=== PATIENT | male | born 1990 | race Caucasian/White ===

== ENCOUNTER 2017-09-15 11:37 | Emergency (ER) | payer OTHER ==
[2017-09-15 11:59] VITALS: BP 118/78; PULSE 72; RESP 16; TEMP 97.9
--- NOTE | 2017-09-15 14:17 | ED ---
General Adult HPI - General Chief complaint: Dizziness Stated complaint: poss vertigo Time Seen by Provider: 09/15/17 14:05 Source: patient, RN notes reviewed Mode of arrival: ambulatory Limitations: no limitations - History of Present Illness Initial comments: 26-year-old male presents for evaluation of dizziness. The dizziness began this morning, he's had this feeling of the room spinning throughout the day today. He did have an episode similar to this several months ago. He was prescribed Antivert and symptoms improved. He denies any URI symptoms. Denies any changes in his hearing or ear pain. Denies any focal weakness denies any focal numbness or tingling. Patient has no balance issues with this episode, he did have some balance issues with his previous episode of vertigo. Denies any nausea or vomiting. Denies any pain complaints. Patient is otherwise healthy with no chronic medical problems. - Related Data Previous Rx's Medication Instructions Recorded Meclizine [Antivert] 25 mg PO TID PRN #30 tab 09/15/17 Allergies Allergy/AdvReac Type Severity Reaction Status Date / Time No Known Allergies Allergy Verified 09/15/17 13:29 Review of Systems ROS Statement: Those systems with pertinent positive or pertinent negative responses have been documented in the HPI. ROS Other: All systems not noted in ROS Statement are negative. Past Medical History Past Medical History: No Reported History History of Any Multi-Drug Resistant Organisms: None Reported Past Surgical History: No Surgical Hx Reported Past Psychological History: No Psychological Hx Reported Smoking Status: Current every day smoker Past Alcohol Use History: Occasional Past Drug Use History: None Reported General Exam Limitations: no limitations General appearance: alert, in no apparent distress Head exam: Present: atraumatic, normocephalic Eye exam: Present: normal appearance, PERRL, EOMI. Absent: nystagmus ENT exam: Present: normal exam, mucous membranes moist, TM's normal bilaterally Neck exam: Present: normal inspection, tenderness, full ROM. Absent: meningismus Respiratory exam: Present: normal lung sounds bilaterally. Absent: respiratory distress Cardiovascular Exam: Present: regular rate, normal rhythm, normal heart sounds GI/Abdominal exam: Present: soft. Absent: distended, tenderness Extremities exam: Present: normal inspection, normal capillary refill Neurological exam: Present: alert, oriented X3, CN II-XII intact, normal gait, other (No [id number] ataxia, no gait ataxia). Absent: motor sensory deficit Psychiatric exam: Present: normal affect, normal mood Skin exam: Present: warm, dry, intact. Absent: cyanosis, diaphoretic Course Vital Signs 09/15/17 11:56 Temperature 97.9 F Pulse Rate 72 Respiratory 16 Rate Blood Pressure 118/78 O2 Sat by Pulse 96 Oximetry Medical Decision Making - Medical Decision Making 26-year-old male with history of vertigo presents with chief complaint of dizziness. He states this is similar but less severe than his previous episode of vertigo. No associated symptoms. Neurologic examination is completely nonfocal with no ataxia, normal gait no nystagmus. Patient has appointment with his primary care physician on Monday which is 3 days from now. He will be prescribed Antivert as he symptoms have been successfully treated with Antivert in the past. Return with any worsening or changing symptoms. Disposition Clinical Impression: Vertigo Disposition: HOME SELF-CARE Condition: Good Instructions: Dizziness (ED) Additional Instructions: Please maintain her appointment with primary care physician on Monday, return with any worsening or changing symptoms. Prescriptions: Meclizine [Antivert] 25 mg PO TID PRN #30 tab PRN Reason: Vertigo Referrals: Sukumar Gordon DO [Primary Care Provider] - 1-2 days Time of Disposition: 14:16
== END 2017-09-15 14:33 | disposition home or self-care (01) ==
LOC: EC 11:37
DX: R42 Dizziness and giddiness (principal); F17.200 Nicotine dependence, unspecified, uncomplicated
CPT/HCPCS: 99283